=== PATIENT | female | born 1985 | race Two or more races ===

== ENCOUNTER 2019-06-25 15:00 | Emergency (ER) | payer SELFPAY ==
[~2019-06-25] VITALS: Ht 157.5 cm; Wt 62.7 kg
[2019-06-25 19:23] VITALS: BP 120/71
== END 2019-06-25 20:09 | disposition home or self-care (01) ==
LOC: ER 15:00
DX: H10.021 Other mucopurulent conjunctivitis, right eye (principal); H11.002 Unspecified pterygium of left eye
CPT/HCPCS: 99283